=== PATIENT | male | born 1960 | race Caucasian/White ===

== ENCOUNTER 2024-03-31 08:01 | Emergency (ER) | payer OTHER, SELFPAY ==
[2024-03-31 08:03] VITALS: BP 174/115
--- NOTE | 2024-03-31 08:29 | ED.GENMED ---
History of Present Illness
General
Chief Complaint: Chest Pain
Source: patient
Exam Limitations: none
Time Seen by Provider: 03/31/24 08:09
Nursing documentation reviewed up to this point in time: agreed with
Travel History
Have you had any contact with someone who has COVID-19?: No
Do you have any symptoms of coronavirus? Fever > 100 degrees, chills, cough, shortness of breath, sore throat, loss of taste or smell, muscle aches, or headache?: No
History of Present Illness
History of Present Illness:
63-year-old male presents with palpitations and chest pain onset a week or so ago worse the last 3 days he is waking up very anxious with fast heart rate and chest pain and sweatiness get some symptoms in the day but is worse in the morning, history
of SVT hypertension anxiety previously with sleep apnea on BiPAP repeat sleep study negative he states, he is followed at the OR states he had cardiac testing in the past but not a catheterization he does smoke, he uses marijuana edibles for anxiety
since beginning of the year none for 3 days previously been on Xanax for anxiety
Past History
Past History
ED Past Medical History: Arrthythmia, HTN, Psychiatric and Other (Sleep apnea anxiety)
Social History
Tobacco: Smoker
Alcohol: Former
Drug: Marijuana
Living: with family
Employment: Retired
Family History
Family History: Adopted
Review of Systems
Review of Systems
All Other Systems: Not applicable
Constitutional: Reports sleep disturbance; Denies fatigue
EENT: Reports no symptoms
Respiratory: Reports trouble breathing
Cardiac: Reports chest pain, diaphoresis and palpitations
ABD/GI: Reports no symptoms
: Reports no symptoms
Musculoskeletal: Reports no symptoms
Neurological: Reports no symptoms
Endocrine: Reports no symptoms
Phy Exam
Physical Exam
Physical Exam:
Physical Exam
General: Hypertensive slightly anxious appearing male cooperative
Neck: No jaundice
Heart: Regular
Lungs: no acute respiratory distress. clear bilaterally
Abdomen: Nontender
Neuro: alert and oriented. no focal neurological deficits
Skin: no rash
Psychiatric: well kept. interactive and cooperative
Extremities: no edema. no calf tenderness
Scores
Heart Score for Chest Pain Patients
STEMI patient?: No
History: Slightly or Non-Suspicious
ECG: Nonspecific Repolarization
Age: >45 - <65 years
Risk Factors: 1 or 2 Risk Factors
Troponin: </= Normal Limit
Heart Score for Chest Pain Patients: 3
Heart Score Risk: 2.5% MACE over next 6 weeks
Course
Orders/Labs/Results
Orders:
Orders
03/31/24 08:05
Electrocardiogram (*1) Urgent
Reason for Study: Chest Pain
EKG- Treatment ONCE
03/31/24 08:19
Complete Blood Count/With Diff Urgent
Comprehensive Metabolic Panel Urgent
NT-proBNP Urgent
Comment: ADD ON
Troponin I Urgent
03/31/24 08:23
Add On- LAB Urgent
Tests Added?: pBNP
Ipratropium/Albuterol Sulfate [Duoneb] 3 ml INH R NOW STA
CR Chest - 2 Views Urgent
Comment:
Reason For Exam: sob
03/31/24 09:54
Lorazepam [Ativan] 1 mg PO NOW STA
Mag Hydrox/Al Hydrox/Simeth [Maalox] 30 ml Phenobarb/Hyoscy/Atropine/Scop [] 10 ml PO NOW
Pantoprazole [Protonix IV] 40 mg IV NOW STA
03/31/24 10:00
Mag Hydrox/Al Hydrox/Simeth [Maalox] 30 ml .ROUTE .STK-MED ONE
Phenobarb/Hyoscy/Atropine/Scop [] 10 ml .ROUTE .STK-MED ONE
03/31/24 10:02
Troponin I Urgent
Abnormal Lab Results
03/31/24
08:19
RBC 4.62 L 10^6/uL
(4.70-6.10)
Absolute Monos (auto) 1.0 H 10^3/uL
(0.1-0.6)
Monocytes % 10.0 H %
(1.7-9.3)
BUN 27 H mg/dl
(9-20)
Glucose 116 H mg/dl
(70-99)
03/31/24 08:19
03/31/24 08:19
Vital Signs
Initial and Last Documented VS:
Initial Vital Signs
Temp Pulse Resp BP Pulse Ox
98.4 F 118 18 174/115 95
03/31/24 08:03 03/31/24 08:03 03/31/24 08:03 03/31/24 08:03 03/31/24 08:03
Last Documented Vital Signs
Temp Pulse Resp BP Pulse Ox
98.4 F 118 18 174/115 95
03/31/24 08:03 03/31/24 08:03 03/31/24 08:03 03/31/24 08:03 03/31/24 08:03
MDM/Problems Addressed
Differential Diagnosis Includes:
Hypertensive urgency, anxiety, side effect from edibles, heart failure, conceivably ACS doubt PE or pneumothorax
MDM/Problems Addressed:
Chest pain shortness of breath palpitations anxiety
Chronic conditions affecting care: HTN, Arrhythmia and Psychiatric illness
Acute Exacerbation and/or Progression of Chronic Illness: HTN, Arrhythmia and Psychiatric illness
*EKG
Interpreted by ED Provider?: Yes
Interpretation: abnormal
Comparison EKG: no comparison EKG present
Rate: normal
Rhythm: sinus
Ischemia: non-specific ST changes
*Group Reservations Coordinator Interpretation
Rate: normal
Interpretation: normal
Heart Rate: 89
Rhythm: sinus
*Critical Care Note
Total Time (30-74mins, 75-104mins- exclusive of procedures): Not Applicable
Update Note
Update Note:
9:05 AM chest x-ray noted looks negative to my troponin noted labs noted proBNP is pending
9:45 AM proBNP noted, blood pressure is normalized, patient sitting upright states he feels like he has some indigestion will try PPI and GI cocktail also feels anxious try small dose of benzo will repeat his troponin keep him on environmental monitoring specialist
11:42 AM second troponin noted patient feeling better
ED Attending Note
-
Portions of this chart may have been created with voice recognition software.� Occasional wrong word or��sound alike� substitutions may have occurred due to the inherent limitations of voice recognition software.
Discharge Plan
Departure
Patient Disposition: Home (Routine Discharge)
Date of Disposition: 03/31/24
Time of Disposition: 11:42
Patient with high blood pressure during this ER visit?: Yes
Condition: Good
Discharge Problem:
Heart palpitations
Instructions: Chest Pain NON-DHP Charge Loader Follow Up, Chest Pain PCP Follow Up, Acid Reflux and GERD in Adults (DC)
Referrals:
Debbie Ayala MD [Family Provider] - Next open appointment
Activity Restrictions/Additional Instructions:
Stop using edibles,
Follow-up with your primary care provider at the OR
Interventions
Interventions:
*Risk Screen - Suicide Last Done: 03/31/24 08:03
*General Assessment Last Done: 03/31/24 08:03
*Neglect/Abuse Screening Last Done: 03/31/24 08:03
*ED COVID-19 Vaccine History Last Done: 03/31/24 08:03
ED- Cardiac Assessment Last Done: 03/31/24 08:38
Discharge Date and Time
Print Language: [id number]
[2024-03-31 08:33] LABS: % Basophils 0.4 % (0-2); % Eosinophils 2.5 % (0-6); % Immature Granulocytes 0.3 % (0-0.5); % Lymphocytes 25.7 % (20.5-51.1); % Neutrophils 61.1 % (42.2-75.2); Absolute Eosinophils 0.3 10^3/uL (0-0.7); Absolute Lymphocytes 2.6 10^3/uL (1.2-3.4); Absolute Neutrophils 6.1 10^3/uL (1.4-6.5); Hematocrit 40.4 % (39.0-52.0); Mean Corp Hgb Conc. 34.7 g/dL (33.0-37.0); Mean Corpuscular Hgb 30.3 pg (27.0-31.0); Mean Corpuscular Volume 87.4 fL (80.0-94.0); Mean Platelet Volume 10.4 fL (7.4-10.4); Nucleated Red Blood Cells % 0 % (-); Platelet Count 273 10^3/uL (130-400); Red Blood Cell Count 4.62 10^6/uL (4.70-6.10); Red Cell Dist. Width 13.8 % (11.5-14.5); White Blood Cell Count 9.9 10^3/uL (4.8-10.8)
[2024-03-31] MEDS: DUONEB 3 ML INH (08:38)
[2024-03-31 08:40] LABS: ALT (SGPT) 33 U/L (0-50); Albumin 4.8 g/dl (3.5-5.0); Alkaline Phosphatase 66 U/L (38-126); Blood Urea Nitrogen 27 mg/dl (9-20); Calcium 9.6 mg/dl (8.4-10.2); Carbon Dioxide 27 mmol/L (22-30); Chloride 103 mmol/L (98-107); Glucose 116 mg/dl (70-99); Potassium 4.6 mmol/L (3.5-5.1); Sodium 140 mmol/L (135-145); Total Bilirubin 0.5 mg/dl (0.2-1.3); Total Protein 7.7 g/dl (6.3-8.2); eGFR > 60.00
[2024-03-31 09:00] LABS: Troponin I < 0.012 ng/ml
[2024-03-31 09:02] LABS: AST (SGOT) 30 U/L (17-59)
[2024-03-31] MEDS: MAALOX 40 PO (10:03)
[2024-03-31] MEDS: ATIVAN 1 MG PO (10:04)
[2024-03-31] MEDS: PROTONIX IV 40 MG IV (10:04)
[2024-03-31 10:49] LABS: Troponin I < 0.012 ng/ml
[2024-03-31 12:00] VITALS: BP 121/79
== END 2024-03-31 12:02 | disposition home or self-care (01) ==
LOC: EMR 08:01
PROVIDERS: Emergency Medicine; EMERGENCY PHYSICIAN Emergency Medicine; FAMILY PHYSICIAN Internal Medicine
DX: R00.2 Palpitations (principal); I10 Essential (primary) hypertension; F17.200 Nicotine dependence, unspecified, uncomplicated
CPT/HCPCS: 99285; 96374; 94640; 71046; 80053; 83880; 84484; 85025; 93005